=== PATIENT | male | born 1985 | race Caucasian/White ===

== ENCOUNTER 2019-09-13 16:28 | Inpatient (IN) | payer MEDICAID ==
[~2019-09-13] VITALS: Ht 180.3 cm; Wt 91.2 kg
--- NOTE | 2019-09-13 16:50 | NUR ---
"Was SOB Xcouple weeks Had XRay done and was told that I have fluid in Left lung. Negative COVID test couple weeks ago" Patient a/ox4, breathing even and unlabored, no sob noted. Needs attended, kept comfortable.
--- NOTE | 2019-09-13 17:28 | NUR ---
iv line established blood drawn and sent to lab.
[2019-09-13 17:30] LABS: BASOPHILS # (AUTO) 0.1 /CMM (0.0-0.2); BASOPHILS % (AUTO) 0.6 % (0.0-2.0); EOSINOPHILS % (AUTO) 2.3 % (0.0-6.0); HEMATOCRIT 41 % (39-51); HEMOGLOBIN 13.5 g/dL (13.5-17.5); LYMPHOCYTES # (AUTO) 1.7 /CMM (0.8-4.8); LYMPHOCYTES % (AUTO) 20.6 % (20.0-44.0); MEAN CORPUSCULAR HGB CONC 33 g/dl (31.0-36.0); MEAN CORPUSCULAR VOLUME 84 fL (80-96); MONOCYTES # (AUTO) 0.7 /CMM (0.1-1.30); MONOCYTES % (AUTO) 8.4 % (2.0-12.0); NEUTROPHILS # (AUTO) 5.7 /CMM (1.8-8.9); NEUTROPHILS % (AUTO) 68.1 % (43.0-81.0); PLATELET COUNT (AUTO) 504 /CMM (150-450); RED BLOOD CELL COUNT(AUTO) 4.84 MIL/uL (4.5-6.0); WHITE BLOOD COUNT (AUTO) 8.4 K/uL (4.3-11.0)
[2019-09-13 17:46] LABS: CALCIUM, SERUM 9.1 mg/dL (8.5-10.1); CARBON DIOXIDE 29 mmol/L (21-32); CHLORIDE 100 mmol/L (98-107); CREATININE 0.9 mg/dL (0.6-1.3); GLUCOSE 101 mg/dL (74-106); POTASSIUM 3.6 mmol/L (3.5-5.1); SODIUM SERUM 138 mmol/L (136-145); UREA NITROGEN, BLOOD 6 mg/dL (7-18)
[2019-09-13 17:58] LABS: ALANINE AMINOTRANSFERASE 19 U/L (12-78); ALBUMIN 3.7 g/dL (3.4-5.0); ALKALINE PHOSPHATASE 76 U/L (46-116); ASPARTATE AMINOTRANSFERASE 14 U/L (15-37); B-TYPE NATRIURETIC PEPTIDE 70 PG/ML (0-125); BILIRUBIN,DIRECT 0.2 mg/dL (0.0-0.2); BILIRUBIN,TOTAL 0.7 mg/dL (0.2-1.0); TOTAL PROTEIN, SERUM 8.1 g/dL (6.4-8.2)
--- NOTE | 2019-09-13 19:19 | NUR ---
TOOK OVER CARE. PT AAOX4, AMBUALTED TO THE RESTROOM. VSS, SAT 97% RA.
--- NOTE | 2019-09-13 19:57 | NUR ---
PT IN BED, PLACED ON MONITOR AND PULSE OX. VSS. ON THE PHONE WITH .
--- NOTE | 2019-09-13 20:16 | NUR ---
JYOTI DNP AT BEDSIDE FOR EVAL.
--- NOTE | 2019-09-13 20:24 | NUR ---
REPORT GIVEN TO MARY GROVES FOR MARY ANNE
[2019-09-13] MEDS ORDERED: IV NS 0.9% 1,000 ML IV PRN (20:36)
--- NOTE | 2019-09-13 20:39 | NUR ---
PT TRANSFERED PER ACLS PROTOCOL
--- NOTE | 2019-09-13 20:40 | NUR ---
written report recieved from charge nurse noe rizo. patient in rm 312-2 admitted telemetry for left plearal effusion. 2044 patient seen. 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 new orders from noman assistant buyer recieved. bed down locked. patient alert and oriented x4 oriented to room. srx2. pt denies sob with ambulation. currently on ra breathing even and unlabored with dry cough. breath sounds are dimnished to the left lower lobe. states he was tested for covid prior to admission due to initial symptoms a couple of weeks prior to admission. states covid test negative. verbalized to call for assistance as needed.
[2019-09-13 20:45] VITALS: BP 120/80
--- NOTE | 2019-09-13 20:50 | NUR ---
thoracentesis planned for tomorrow, npo after midnoc, [facility] prison officer new orders Brenden Silva prison officer called new orders for ct of chest and abd with and without contrast ordered. and plan for thoracentesis of abd with dr. willis. reviewed new plan of care with patient and npo status after midnight verbalized understanding.
[2019-09-13] MEDS ORDERED: MAGNESIUM HYDROXIDE 30 ML UDC PO PRN (21:00)
[2019-09-13] MEDS ORDERED: Z GUARD REMEDY 2 OZ OINT TP PRN (21:00)
[2019-09-13] MEDS ORDERED: ONDANSETRON HCL/PF 4 MG/2 ML VIAL IVP PRN (21:00)
[2019-09-13] MEDS ORDERED: MORPHINE SULFATE INJ 2 MG/ML DISP.SYRIN IV PRN (21:00)
[2019-09-13] MEDS ORDERED: ACETAMINOPHEN 325 MG TABLET PO PRN (21:00)
[2019-09-13] MEDS ORDERED: MAG HYDROX/AL HYDROX/SIMETH 30 ML UDC PO PRN (21:00)
[2019-09-13] MEDS ORDERED: HYDROCODONE/APAP 5/325MG 1 EACH TABLET PO PRN (21:00)
[2019-09-14] VITALS (8 sets, daily range): BP systolic 115–140; BP diastolic 64–87
[2019-09-14 06:35] LABS: BASOPHILS % (AUTO) 0.7 % (0.0-2.0); EOSINOPHILS % (AUTO) 5.7 % (0.0-6.0); HEMATOCRIT 38 % (39-51); HEMOGLOBIN 12.7 g/dL (13.5-17.5); LYMPHOCYTES # (AUTO) 1.6 /CMM (0.8-4.8); LYMPHOCYTES % (AUTO) 21.9 % (20.0-44.0); MEAN CORPUSCULAR HGB CONC 33 g/dl (31.0-36.0); MEAN CORPUSCULAR VOLUME 84 fL (80-96); MONOCYTES # (AUTO) 0.7 /CMM (0.1-1.30); MONOCYTES % (AUTO) 9.6 % (2.0-12.0); NEUTROPHILS # (AUTO) 4.5 /CMM (1.8-8.9); NEUTROPHILS % (AUTO) 62.1 % (43.0-81.0); PLATELET COUNT (AUTO) 462 /CMM (150-450); RED BLOOD CELL COUNT(AUTO) 4.58 MIL/uL (4.5-6.0); WHITE BLOOD COUNT (AUTO) 7.2 K/uL (4.3-11.0)
[2019-09-14 06:56] LABS: CALCIUM, SERUM 8.5 mg/dL (8.5-10.1); CREATININE 0.8 mg/dL (0.6-1.3); MAGNESIUM 2.1 mg/dL (1.8-2.4); PHOSPHORUS 3.8 mg/dL (2.5-4.9); POTASSIUM 3.6 mmol/L (3.5-5.1)
--- NOTE | 2019-09-14 07:45 | NUR ---
RN NOTES PATIENT IN BED RESTING. NO SOB OR ACUTE DISTRESS NOTED. PATIENT ALERT, ORIENTED X4. BED IN LOW LOCKED POSITION. CALL LIGHT WITHIN REACH. WILL CONTINUE TO MONITOR.
[2019-09-14] MEDS ORDERED: IOHEXOL-300 100 ML VIAL IV ONE (09:36)
[2019-09-14] MEDS ORDERED: IV NS 0.9% 250 ML IV ONE (09:37)
[2019-09-14] MEDS ORDERED: CT SWABBABLE VALVE TRANS SET 1 EA INFUS.SET MC ONE (09:37)
[2019-09-14 10:08] LABS: C-REACTIVE PROTEIN 3.9 mg/dL (0.0-0.9)
[2019-09-14] MEDS ORDERED: LORAZEPAM INJ 2 MG/ML VIAL IV ONE (11:30)
--- NOTE | 2019-09-14 18:40 | NUR ---
MS RN NOTES PATIENT IN BED RESTING NO SOB OR ACUTE DISTRESS NOTED. PATIENT ALERT, ORIENTED X4. PATIENT S/P THORACENTESIS WITH 1LITTER OUT. FLUID SENT TO LAB FOR TESTING. NO ACUTE CHANGES NOTED. WILL ENDORSE CARE TO PM SHIFT.
--- NOTE | 2019-09-14 19:30 | NUR ---
MS RN NOTES PATIENT RECEIVED IN BED, RESTING COMFORTABLY. ALERT AND ORIENTED X 4. ON ROOM AIR WITH NO SIGNS OF RESPIRATORY DISTRESS AND NO SIGNS OF SOB AT THIS TIME. ON ISOLATION PRECAUTION FOR RULE OUT COVID-19. PATIENT IV ACCESS INTACT AND PATENT. SKIN WARM AND DRY TO TOUCH. DENIES ANY PAIN OR DISCOMFORT AT THIS TIME. SAFETY PRECAUTIONS IN PLACE WITH BED IN THE LOWEST POSITION, BED LOCKED, BILATERAL SIDE RAILS UP, AND CALL LIGHT WITHIN EASY REACH OF THE PATIENT. WILL CONTINUE TO MONITOR PATIENT.
[2019-09-14] MEDS: TEMAZEPAM 15 MG CAPSULE PO PRN (21:39)
--- NOTE | 2019-09-14 21:39 | NUR ---
MS RN NOTES PATIENT STATING HE WANTS TO GET REST AND IS HAVING TROUBLE. PATIENT REQUESTED SLEEPING AID, AND AGREE ON TAKING PRN 30mg RESTORIL, ADMINISTERED PRN RESTORIL. VITAL SIGNS BLOOD PRESSURE 115/70, HEART RATE 75, SPO2 95%, RESPIRATORY RATE 18. WILL CONTINUE TO MONITOR PATIENT.
[2019-09-15 06:25] LABS: BASOPHILS # (AUTO) 0.1 /CMM (0.0-0.2); BASOPHILS % (AUTO) 0.7 % (0.0-2.0); EOSINOPHILS % (AUTO) 5.1 % (0.0-6.0); HEMATOCRIT 44 % (39-51); HEMOGLOBIN 14.5 g/dL (13.5-17.5); LYMPHOCYTES # (AUTO) 1.7 /CMM (0.8-4.8); LYMPHOCYTES % (AUTO) 21.4 % (20.0-44.0); MEAN CORPUSCULAR HGB CONC 33 g/dl (31.0-36.0); MEAN CORPUSCULAR VOLUME 84 fL (80-96); MONOCYTES # (AUTO) 0.6 /CMM (0.1-1.30); MONOCYTES % (AUTO) 7.8 % (2.0-12.0); NEUTROPHILS # (AUTO) 5.2 /CMM (1.8-8.9); PLATELET COUNT (AUTO) 533 /CMM (150-450); RED BLOOD CELL COUNT(AUTO) 5.28 MIL/uL (4.5-6.0)
--- NOTE | 2019-09-15 06:31 | NUR ---
MS RN NOTES PATIENT IN BED, ALERT AND ORIENTED X 4. ON ROOM AIR WITH NO SIGNS OF RESPIRATORY DISTRESS, NO SOB NOTED, WITH EVEN NON-LABORED BREATHING AND WITH NON-PRODUCTIVE COUGH. PATIENT SKIN KEPT WARM AND DRY, IV ACCESS INTACT AND PATENT ON LEFT AC 20 GAUGE, SALINE LOCK. MET ALL OF PATIENT'S NEEDS. PROVIDED COMFORT MEASURES TO PATIENT, NO PAIN OR DISCOMFORT AT THIS TIME. SAFETY PRECAUTIONS IMPLEMENTED WITH BED IN THE LOWEST POSITION, BED LOCKED, BILATERAL SIDE RAILS UP AND CALL LIGHT WITHIN EASY REACH OF PATIENT. WILL ENDORSE PLAN OF CARE TO UPCOMING DAYSHIFT NURSE.
[2019-09-15 06:44] LABS: CALCIUM, SERUM 9.4 mg/dL (8.5-10.1); MAGNESIUM 2.4 mg/dL (1.8-2.4); PHOSPHORUS 4.8 mg/dL (2.5-4.9); POTASSIUM 4.8 mmol/L (3.5-5.1)
[2019-09-15 06:53] LABS: THYROID STIMULATING HORMONE 1.129 uIU/mL (0.358-3.74)
[2019-09-15 08:00] VITALS: BP 117/78
--- NOTE | 2019-09-15 08:00 | NUR ---
RN NOTES RECEIVED PATIENT IN THE BED A/O 3, NO ACUTE RESPIRATORY DISTRESS, REFUSED PAIN. PATIENT NPO SCHEDULED FOR PROCEDURE, V/S TAKEN STABLE. IV ACCESS LEFT AC AREA INTACT. SAFETY PRECAUTION MAINTAINED ALL THE TIME.
--- NOTE | 2019-09-15 13:41 | NUR ---
RN NOTES SEEN PATIENT BY HOSPITALIST [place] ASSISTED LIVING NURSING DIRECTOR , PATIENT WILL CONTINUED HOSPITALIZATION, TAKE MEDICATION PRESCRIBED.
--- NOTE | 2019-09-15 13:46 | NUR ---
RN NOTES PER NEGATIVE NOTCHER Dr GONZALEZ PATIENT WILL HAVING A HEMODIALYSIS TODAY, BECAUSE OF LAB RESULT. Addendum: 09/15/19 at 1403 by JUAN CARLOS STEINER RN ABOVE NOTES WRONG INTERVENTION.
--- NOTE | 2019-09-15 14:12 | NUR ---
RN NOTES CHANGED DIET PATIENT CAN EAT. PATIENT PREFERRED TO STAY IN THE HOSPITAL FOR CT GUIDED LUNG BIOPSY TOMORROW. PATIENT REFUSED PAIN, AMBULATORY SELF CARE.
[2019-09-15 16:00] VITALS: BP 131/76
--- NOTE | 2019-09-15 18:00 | NUR ---
RN NOTES PATIENT STABLE REFUSED PAIN, NO ACUTE RESPIRATORY DISTRESS, TOLERATED DINNER WELL.PATIENT SELF CARE. PATIENT WILL GOING NPO MIDNIGHT BECAUSE OF SCHEDULED CT GUIDED BIOPSY TOMORROW. ENDORSED ONCOMING NURSE FOLLOW PLAN OF CARE.
--- NOTE | 2019-09-15 19:35 | NUR ---
MS RN NOTES PATIENT RECEIVED IN BED RESTING COMFORTABLY. ALERT AND ORIENTED X 4. PATIENT ON ROOM AIR, WITH EVEN NON-LABORED BREATHING, AND NO SOB NOTED AT THIS TIME. ON ISOLATION PRECAUTION, FOR RULE OUT COVID-19, RESULTS STILL PENDING. PATIENT SKIN WARM AND DRY TO TOUCH. DENIES ANY PAIN OR DISCOMFORT AT THIS TIME. PATIENT IV ACCESS INTACT AND PATENT ON LAC, 20 GAUGE. SAFETY PRECAUTIONS IN PLACE WITH BED LOCKED, BED IN THE LOWEST POSITION, BILATERAL SIDE RAILS UP, BED IN SEMI-FOWLERS POSITION AND CALL LIGHT WITHIN EASY REACH OF THE PATIENT. WILL CONTINUE TO MONITOR PATIENT.
[2019-09-15 20:28] VITALS: BP 120/79
--- NOTE | 2019-09-15 20:55 | NUR ---
MS RN NOTES SPOKE WITH DR. GREEN. INFORMED MD CURRENT STATUS OF PATIENT. NO NEW ORDERS AT THIS TIME, WILL CONTINUE TO MONITOR PATIENT.
[2019-09-15] MEDS: TEMAZEPAM 15 MG CAPSULE PO PRN (21:52)
--- NOTE | 2019-09-15 21:52 | NUR ---
MS RN NOTES PATIENT REQUESTING SLEEPING AID TO HELP SLEEP THROUGHOUT THE NIGHT. ADMINISTERED PRN, RESTORIL 30mg PO. VITAL SIGNS 123/81 HEART RATE 93, RESPIRATORY RATE 18, SPO2 95% ON ROOM AIR. WILL CONTINUE TO MONITOR PATIENT.
--- NOTE | 2019-09-16 06:36 | NUR ---
MS RN NOTES PATIENT IN BED SLEEPING, EASILY AWAKEN BY NAME. PATIENT ON ROOM AIR WITH NO SIGNS OF SOB NOTED AND WITH EVEN NON-LABORED BREATHING. SKIN WARM AND DRY TO TOUCH. IV ACCESS INTACT AND PATENT. MET ALL OF PATIENT'S NEEDS. PROVIDED COMFORT MEASURES TO PATIENT, NO PAIN OR DISCOMFORT AT THIS TIME. SAFETY PRECAUTIONS IMPLEMENTED WITH BED IN THE LOWEST POSITION, BED LOCKED, BILATERAL SIDE RAILS UP AND CALL LIGHT WITHIN EASY REACH OF PATIENT. WILL ENDORSE PLAN OF CARE TO UPCOMING DAYSHIFT NURSE.
[2019-09-16 06:54] LABS: CALCIUM, SERUM 8.9 mg/dL (8.5-10.1); MAGNESIUM 2.3 mg/dL (1.8-2.4); PHOSPHORUS 4.4 mg/dL (2.5-4.9); POTASSIUM 3.9 mmol/L (3.5-5.1)
[2019-09-16 07:27] LABS: BASOPHILS % (AUTO) 0.4 % (0.0-2.0); EOSINOPHILS % (AUTO) 5.7 % (0.0-6.0); HEMATOCRIT 44 % (39-51); HEMOGLOBIN 14.5 g/dL (13.5-17.5); LYMPHOCYTES # (AUTO) 1.5 /CMM (0.8-4.8); LYMPHOCYTES % (AUTO) 18.7 % (20.0-44.0); MEAN CORPUSCULAR HGB CONC 33 g/dl (31.0-36.0); MEAN CORPUSCULAR VOLUME 83 fL (80-96); MONOCYTES # (AUTO) 0.9 /CMM (0.1-1.30); MONOCYTES % (AUTO) 10.4 % (2.0-12.0); NEUTROPHILS # (AUTO) 5.4 /CMM (1.8-8.9); NEUTROPHILS % (AUTO) 64.8 % (43.0-81.0); PLATELET COUNT (AUTO) 522 /CMM (150-450); RED BLOOD CELL COUNT(AUTO) 5.31 MIL/uL (4.5-6.0); WHITE BLOOD COUNT (AUTO) 8.3 K/uL (4.3-11.0)
[2019-09-16 08:00] VITALS: BP 137/78
--- NOTE | 2019-09-16 08:00 | NUR ---
RN NOTES RECEIVED PATIENTIN THE BED AWAKE/A/O X4. PATIENTHAS NO ACUTE RESPIRATORY DISTRESS, R/O COVID- 19 PENDING RESULT. PATIENT REFUSED PAIN, SELF CARE, AMBULATORY. PATIENT NPO TODAY SCHEDULED CT BIOPSY LUNGS. V/S STABLE, CALL LIGHT WITHIN TO REACH, CONTINUED MONITORING.
[2019-09-16 09:38] VITALS: BP 137/78
--- NOTE | 2019-09-16 11:09 | NUR ---
RN NOTES ADMINISTERED MORPHINE SULFATE 2 MG /ML IV PUSH FOR ACUTE CHEST PAIN 10/24 PER PATIENT REQUEST. V/S TAKEN BP-123/78, P-102, R-20. CONTINUED MONITORING.
[2019-09-16 11:18] VITALS: BP 123/78
--- NOTE | 2019-09-16 11:39 | NUR ---
rn notes medication were administered for pain effective.
--- NOTE | 2019-09-16 13:50 | NUR ---
RN NOTES PATIENT PRIMARY TEACHER AT THIS TIME FOR CT LUNG BIOPSY.
[2019-09-16] MEDS ORDERED: FENTANYL PF 100MCG/2ML AMPUL IV PRN (14:30)
[2019-09-16] MEDS ORDERED: MIDAZOLAM HCL 2 MG/2ML VIAL IV PRN (14:30)
[2019-09-16] MEDS ORDERED: NALOXONE HCL 0.4 MG/ML AMPUL IV PRN (14:30)
--- NOTE | 2019-09-16 15:55 | NUR ---
RN NOTES PATIENT BACK AT THIS TIME FROM BIOPSY. PATIENT STABLE, REFUSED PAIN. CONTINUED MONITORING.
[2019-09-16 15:59] VITALS: BP 139/90
--- NOTE | 2019-09-16 18:00 | NUR ---
RN NOTES CHEST X-RAY DONE, PATIENT STABLE, SELF CARE. PER HOSPITALIST PLAN TO DISCHARGE HOME AFTER RESULT OF BIOPSY. ENDORSED ONCOMING NURSE FOLLOW PLAN OF CARE. PATIENT GET RESULTED COVID NEGATIVE.
[2019-09-16 19:30] VITALS: BP 125/85
--- NOTE | 2019-09-16 19:52 | NUR ---
MS RN OPENING NOTES: RECEIVED PT ON ROOM AIR AND IS TOLERATING WELL. NO SOB NOTED. NO S/S OF DISTRESS. PT HAS IV ACCESS ON L AC #20G AND IS PATENT AND INTACT. CURRENTLY H/L. PT EXPECTING TO GO HOME TONIGHT AND SAID WOULD HAVE PICK HIM UP IF HE IS ABLE TO. PAGED EPIC. AWAITING FOR CALL BACK TO GET A FORMAL DISCHARGE ORDER. BED KEPT IN LOW, LOCKED POSITION, AND SIDE RAILS X 2 UP. CALL LIGHT WITHIN REACH. WILL CONTINUE TO MONITOR PT.
--- NOTE | 2019-09-16 19:56 | NUR ---
MS RN NOTES: SPOKE WITH DR. TORRES. REVIEWED CHEST X RAY WITH HIM. AWARE THAT PT IS S/P BIOPSY. ALSO AWARE THAT JAMILA GALLEGOS WROTE DISCHARGE SUMMARY. OK FOR DISCHARGE ORDER. OK TO GO HOME TONIGHT. Addendum: 09/16/19 at 2114 by SARAH MELGAR RN DANNY GALLEGOS
--- NOTE | 2019-09-16 20:40 | NUR ---
MS RN NOTES: IV REMOVED FROM L AC. ALL BELONGINGS TAKEN WITH PT. PT GIVEN DISCHARGE INSTRUCTIONS AND CD WITH DIAGNOSTICS. PT WHEELED DOWNSTAIRS WITH REHEATER HELPER, SAMEERA, AND IS PRESENT IN VEHICLE. PT VERY PLEASED TO GO HOME.
== END 2019-09-16 20:40 | disposition home or self-care (01) | DRG 136 ==
LOC: ER 16:30 → TELE 20:23 → MED 09-14 09:40
PROVIDERS: ADMIT Nurse Practitioner Acute Care; ATTEND Registered Nurse
PROC: 0JB63ZX Excision of Chest Subcutaneous Tissue and Fascia, Percutaneous Approach, Diagnostic (ICD-10-PCS; principal; 2019-09-14)
PROC: 0W9B3ZZ Drainage of Left Pleural Cavity, Percutaneous Approach (ICD-10-PCS; principal; 2019-09-14)
DX: C78.02 Secondary malignant neoplasm of left lung (principal); J90 Pleural effusion, not elsewhere classified; D47.3 Essential (hemorrhagic) thrombocythemia; J98.11 Atelectasis; D64.9 Anemia, unspecified; Z87.891 Personal history of nicotine dependence; Z92.21 Personal history of antineoplastic chemotherapy; Z92.3 Personal history of irradiation; R06.00 Dyspnea, unspecified; R05 Cough; Z85.89 Personal history of malignant neoplasm of other organs and systems
CPT/HCPCS: 36415; 71045-TC; 71270-TC; 74178; 76942-TC; 80048-TC; 80076-TC; 82728-TC; 83540-TC; 83615-TC; 83735-TC; 83880; 84100-TC; 84443-TC; 84484-TC; 85025-TC; 85378-TC; 85610-TC; 85652-TC; 85730-TC; 86140-TC; 87081-TC; 88305-TC; 88333-TC; 88341; 88342; 89051-TC; G0378; J2060; J2250; J2270; J2310; J3010; J7030; J7050; Q9967; U0003-CS

== ENCOUNTER 2022-03-06 17:13 | Emergency (ER) | payer MEDICAID ==
[~2022-03-06] VITALS: Ht 180.3 cm; Wt 99.8 kg
[2022-03-06] MEDS ORDERED: CT SWABBABLE VALVE TRANS SET 1 EA INFUS.SET MC ONE (18:15)
[2022-03-06] MEDS ORDERED: IOHEXOL-300 100 ML VIAL IV ONE (18:15)
[2022-03-06] MEDS ORDERED: IV NS 0.9% 250 ML IV ONE (18:15)
[2022-03-06] MEDS ORDERED: IV NS 0.9% 1,000 ML BAG IV ONE (18:30)
--- NOTE | 2022-03-06 18:40 | NUR ---
BLOOD DRAWN AND SENT TO LAB
--- NOTE | 2022-03-06 18:50 | NUR ---
PATIENT TAKEN TO CT VIA [facility]
[2022-03-06 19:45] LABS: CALCIUM, SERUM 9.4 mg/dL (8.5-10.1); POTASSIUM 4.2 mmol/L (3.5-5.1)
[2022-03-06 19:56] LABS: ALBUMIN 4.3 g/dL (3.4-5.0); BILIRUBIN,DIRECT 0.1 mg/dL (0.0-0.2); BILIRUBIN,TOTAL 1.1 mg/dL (0.2-1.0); TOTAL PROTEIN, SERUM 8.5 g/dL (6.4-8.2)
[2022-03-06 20:42] LABS: BASOPHILS # (AUTO) 0.1 K/uL (0.0-0.2); BASOPHILS % (AUTO) 1.1 % (0.0-2.0); HEMATOCRIT 43 % (39-51); HEMOGLOBIN 14.6 g/dL (13.5-17.5); LYMPHOCYTES # (AUTO) 1.3 K/uL (0.8-4.8); LYMPHOCYTES % (AUTO) 23.8 % (20.0-44.0); MEAN CORPUSCULAR HGB CONC 34 g/dl (31.0-36.0); MEAN CORPUSCULAR VOLUME 88 fL (80-96); MONOCYTES # (AUTO) 0.9 K/uL (0.1-1.30); MONOCYTES % (AUTO) 16.6 % (2.0-12.0); NEUTROPHILS % (AUTO) 55.5 % (43.0-81.0); PLATELET COUNT (AUTO) 299 K/uL (150-450); RED BLOOD CELL COUNT(AUTO) 4.91 MIL/uL (4.5-6.0); WHITE BLOOD COUNT (AUTO) 5.5 K/uL (4.3-11.0)
[2022-03-06 21:08] LABS: EOSINOPHILS % (MANUAL) 2 % (0-4); LYMPHOCYTES % (MANUAL) 27 % (16-48); MONOCYTES % (MANUAL) 13 % (0-11.0); NEUTROPHILS % (MANUAL) 58 (42-76)
--- NOTE | 2022-03-06 21:25 | NUR ---
IV removed. Catheter intact and site benign. Pressure and 4x4 applied to site. No bleeding noted.Patient discharged to home in stable condition. Written and verbal after care instructions given. Patient verbalizes understanding of instruction.
[2022-03-06 21:30] VITALS: BP 117/65
== END 2022-03-06 21:25 | disposition home or self-care (01) ==
LOC: ER 17:13
DX: R10.12 Left upper quadrant pain (principal)
CPT/HCPCS: 99285; 74177; 96360; 71045; 85025; 80048; 83690; 80076; 36415; 85007; J7030; J7050; Q9967

== ENCOUNTER 2022-12-14 19:20 | Emergency (ER) | payer MEDICARE, OTHER ==
[~2022-12-14] VITALS: Ht 180.3 cm; Wt 90.7 kg
[2022-12-14 21:09] VITALS: BP 120/72; TEMP 98.6; O2SAT 95
[2022-12-14] MEDS ORDERED: HYDROCODONE/APAP 5/325MG TABLET ONE (21:25)
[2022-12-14] MEDS: HYDROCODONE/APAP 5/325MG TABLET PO ONE (21:30)
[2022-12-14] MEDS ORDERED: IV NS 0.9% 250 ML IV ONE (23:27)
[2022-12-14] MEDS ORDERED: CT SWABBABLE VALVE TRANS SET 1 EA INFUS.SET MC ONE (23:27)
[2022-12-14] MEDS ORDERED: IOHEXOL-300 100 ML VIAL IV ONE (23:27)
[2022-12-15 00:51] LABS: BASOPHILS % (AUTO) 0.5 % (0.0-2.0); EOSINOPHILS % (AUTO) 0.5 % (0.0-6.0); HEMATOCRIT 28 % (39-51); HEMOGLOBIN 8.8 g/dL (13.5-17.5); LYMPHOCYTES # (AUTO) 0.7 K/uL (0.8-4.8); LYMPHOCYTES % (AUTO) 8.7 % (20.0-44.0); MEAN CORPUSCULAR HEMOGLOBIN 27 PG (26.0-33.0); MEAN CORPUSCULAR HGB CONC 31 g/dl (31.0-36.0); MEAN CORPUSCULAR VOLUME 87 fL (80-96); MONOCYTES % (AUTO) 0.6 % (2.0-12.0); NEUTROPHILS # (AUTO) 6.8 K/uL (1.8-8.9); NEUTROPHILS % (AUTO) 89.7 % (43.0-81.0); PLATELET COUNT (AUTO) 497 K/uL (150-450); RED BLOOD CELL COUNT(AUTO) 3.23 MIL/uL (4.5-6.0); RED CELL DISTRIBUTION WIDTH 20.6 % (11.5-15.0); WHITE BLOOD COUNT (AUTO) 7.6 K/uL (4.3-11.0)
[2022-12-15 00:53] LABS: CALCIUM, SERUM 8.1 mg/dL (8.5-10.1); CREATININE 1.4 mg/dL (0.6-1.3)
== END 2022-12-15 02:00 | disposition left against medical advice (07) ==
LOC: ER 19:26
DX: C76.51 Malignant neoplasm of right lower limb (principal); M79.89 Other specified soft tissue disorders
CPT/HCPCS: 99285; 73701; 93971; 36415; 76882; 85025; 80048; 83605; J7050; Q9967

== ENCOUNTER 2023-02-09 23:13 | Emergency (ER) | payer MEDICARE, OTHER ==
[~2023-02-09] VITALS: Ht 180.3 cm; Wt 88.5 kg
[2023-02-09 23:22] VITALS: TEMP 98.3
[2023-02-09] MEDS ORDERED: PANTOPRAZOLE 80 MG in IV NS 0.9% 100 ML IV ONE (23:30)
[2023-02-09] MEDS ORDERED: IV NS 0.9% 500 ML BAG IV ONE (23:30)
[2023-02-09] MEDS ORDERED: ONDANSETRON HCL/PF 4 MG/2 ML VIAL IVP ONE (23:30)
[2023-02-09] MEDS ORDERED: ONDANSETRON HCL/PF 4 MG/2 ML VIAL ONE (23:59)
[2023-02-09] MEDS ORDERED: PANTOPRAZOLE 40 MG VIAL ONE (23:59)
[2023-02-10 00:21] LABS: BASOPHILS # (AUTO) 0.1 K/uL (0.0-0.2); BASOPHILS % (AUTO) 0.4 % (0.0-2.0); EOSINOPHILS # (AUTO) 0.2 K/uL (0.0-0.7); EOSINOPHILS % (AUTO) 1.2 % (0.0-6.0); HEMATOCRIT 25 % (39-51); HEMOGLOBIN 7.7 g/dL (13.5-17.5); LYMPHOCYTES # (AUTO) 1.3 K/uL (0.8-4.8); LYMPHOCYTES % (AUTO) 8.2 % (20.0-44.0); MEAN CORPUSCULAR HEMOGLOBIN 28 PG (26.0-33.0); MEAN CORPUSCULAR HGB CONC 31 g/dl (31.0-36.0); MEAN CORPUSCULAR VOLUME 89 fL (80-96); MONOCYTES # (AUTO) 1.2 K/uL (0.1-1.30); MONOCYTES % (AUTO) 7.6 % (2.0-12.0); NEUTROPHILS # (AUTO) 13.3 K/uL (1.8-8.9); NEUTROPHILS % (AUTO) 82.6 % (43.0-81.0); PLATELET COUNT (AUTO) 431 K/uL (150-450); RED BLOOD CELL COUNT(AUTO) 2.77 MIL/uL (4.5-6.0); RED CELL DISTRIBUTION WIDTH 18.4 % (11.5-15.0); WHITE BLOOD COUNT (AUTO) 16.2 K/uL (4.3-11.0)
[2023-02-10 00:37] LABS: ALANINE AMINOTRANSFERASE 47 U/L (12-78); ALKALINE PHOSPHATASE 171 U/L (46-116); ASPARTATE AMINOTRANSFERASE 47 U/L (15-37); BILIRUBIN,DIRECT 0.5 mg/dL (0.0-0.2); BILIRUBIN,TOTAL 0.9 mg/dL (0.2-1.0); CALCIUM, SERUM 7.5 mg/dL (8.5-10.1); CARBON DIOXIDE 22 mmol/L (21-32); CHLORIDE 100 mmol/L (98-107); CREATININE 0.7 mg/dL (0.6-1.3); GLUCOSE 126 mg/dL (74-106); LIPASE 114 U/L (16-77); POTASSIUM 3.9 mmol/L (3.5-5.1); SODIUM SERUM 130 mmol/L (136-145); TOTAL PROTEIN, SERUM 4.8 g/dL (6.4-8.2); UREA NITROGEN, BLOOD 14 mg/dL (7-18)
[2023-02-10 00:41] LABS: INR 1.17 (0.91-1.10); PARTIAL THROMBOPLASTIN TIME 25.9 SEC (24.3-34.3); PROTHROMBIN TIME 12.3 SECS (9.2-11.1)
[2023-02-10 01:02] LABS: ALBUMIN 1.3 g/dL (3.4-5.0)
[2023-02-10] MEDS ORDERED: CT SWABBABLE VALVE TRANS SET 1 EA INFUS.SET MC ONE (01:19)
[2023-02-10] MEDS ORDERED: IOHEXOL-350 100 ML VIAL IV ONE (01:19)
[2023-02-10] MEDS ORDERED: IV NS 0.9% 250 ML IV ONE (01:19)
[2023-02-10] MEDS ORDERED: MORPHINE SULFATE INJ 2 MG/ML DISP.SYRIN IV ONE ×2 (01:30→12:30)
[2023-02-10] MEDS ORDERED: ONDANSETRON HCL/PF 4 MG/2 ML VIAL ONE ×2 (01:43→12:13)
[2023-02-10 01:51] LABS: ANISOCYTOSIS 1+; BAND % (MANUAL) 1 % (0.0-5.0); EOSINOPHILS % (MANUAL) 1 % (0-4); LYMPHOCYTES % (MANUAL) 13 % (16-48); METAMYELOCYTES % 1 % (0-0); MONOCYTES % (MANUAL) 7 % (0-11.0); NEUTROPHILS % (MANUAL) 77 (42-76); OVALOCYTES 1+; PLATELET ESTIMATE ADEQUATE
[2023-02-10] MEDS ORDERED: TRANEXAMIC ACID IV SCH (02:00)
[2023-02-10] MEDS ORDERED: NS 0.9% IV SCH (02:00)
[2023-02-10] MEDS ORDERED: ONDANSETRON HCL/PF 4 MG/2 ML VIAL IV ONE (02:00)
[2023-02-10] MEDS ORDERED: TRANEXAMIC ACID 1,000 MG/10 ML VIAL ONE ×2 (02:41→03:08)
[2023-02-10] MEDS ORDERED: NS 0.9% IV STA (02:58)
[2023-02-10] MEDS ORDERED: TRANEXAMIC ACID IV STA (02:58)
[2023-02-10] MEDS ORDERED: NOREPINEPHRINE 8MG/250ML RTU 250 ML IV ONE (05:07)
[2023-02-10 05:14] LABS: BASOPHILS % (AUTO) 0.1 % (0.0-2.0); HEMATOCRIT 21 % (39-51); LYMPHOCYTES # (AUTO) 0.7 K/uL (0.8-4.8); LYMPHOCYTES % (AUTO) 3.5 % (20.0-44.0); MEAN CORPUSCULAR HEMOGLOBIN 29 PG (26.0-33.0); MEAN CORPUSCULAR HGB CONC 32 g/dl (31.0-36.0); MEAN CORPUSCULAR VOLUME 91 fL (80-96); MONOCYTES # (AUTO) 1.7 K/uL (0.1-1.30); MONOCYTES % (AUTO) 8.4 % (2.0-12.0); NEUTROPHILS # (AUTO) 17.3 K/uL (1.8-8.9); PLATELET COUNT (AUTO) 299 K/uL (150-450); RED BLOOD CELL COUNT(AUTO) 2.34 MIL/uL (4.5-6.0); RED CELL DISTRIBUTION WIDTH 16.4 % (11.5-15.0); WHITE BLOOD COUNT (AUTO) 19.7 K/uL (4.3-11.0)
[2023-02-10 05:22] LABS: HEMOGLOBIN 6.8 g/dL (13.5-17.5)
[2023-02-10] MEDS ORDERED: NOREPINEPHRINE 8 MG in IV NS 0.9% 242 ML IV PRN (05:30)
[2023-02-10 05:37] VITALS: BP 110/87; O2SAT 100
[2023-02-10] MEDS ORDERED: PROTHROMBIN COMPLEX CONCENTR 500 UNIT VIAL IV ONE (06:00)
[2023-02-10] MEDS ORDERED: TRANEXAMIC ACID 1,000 MG in IV NS 0.9% 100 ML IV ONE (07:00)
[2023-02-10 12:02] LABS: ANISOCYTOSIS 1+; LYMPHOCYTES % (MANUAL) 5 % (16-48); MONOCYTES % (MANUAL) 9 % (0-11.0); NEUTROPHILS % (MANUAL) 86 (42-76); PLATELET ESTIMATE ADEQUATE
[2023-02-10] MEDS ORDERED: MORPHINE SULFATE INJ 4 MG/ML DISP.SYRIN ONE (12:13)
[2023-02-10] MEDS ORDERED: ONDANSETRON HCL/PF - ER 4 MG/2 ML VIAL IV ONE (12:30)
== END 2023-02-10 12:32 | disposition short-term general hospital (02) ==
LOC: ER 23:27
DX: C16.2 Malignant neoplasm of body of stomach (principal); C49.9 Malignant neoplasm of connective and soft tissue, unspecified; K22.11 Ulcer of esophagus with bleeding; I85.01 Esophageal varices with bleeding
CPT/HCPCS: 99291; 96375 ×2; 93005; 71045; 36415; 96365; 96366; 96368; 36430; 36410; 96376; 74174; 74176; 85025 ×2; 80048; 83690; 80076; 85007 ×2; 84484; 85730; 86850; 86923 ×3; J2405 ×4; J7030 ×5; C9113 ×2; J2270; J7060; J7050 ×5; J7040 ×2; A4223 ×3; Q9967; J7168; P9016